=== PATIENT | male | born 1995 | race Asian ===

== ENCOUNTER 2024-10-16 12:05 | Emergency (ER) | payer MEDICAID, OTHER ==
[~2024-10-16] VITALS: Ht 177.8 cm; Wt 106.4 kg
[2024-10-16 12:21] VITALS: TEMP 98.5
[2024-10-16 14:01] LABS: COVID AG,FIA SOURCE NASAL SWAB
[2024-10-16 14:22] LABS: INFLUENZA TYPE A NEGATIVE FOR TYPE A (NEGATIVE); INFLUENZA TYPE B NEGATIVE FOR TYPE B (NEGATIVE); SARS-COV2 (COVID) ANTIGEN,FIA Negative (Negative)
[2024-10-16] MEDS ORDERED: IBUP-1492 PO (14:32)
[2024-10-16] MEDS ORDERED: BENZ-227 PO (14:32)
[2024-10-16 14:38] VITALS: BP 136/80; PULSE 84; RESP 16; O2SAT 100
== END 2024-10-16 14:44 | disposition home or self-care (01) ==
LOC: EMS 12:09
DX: J06.9 Acute upper respiratory infection, unspecified (principal); Z20.822 Contact with and (suspected) exposure to COVID-19
CPT/HCPCS: 71045; 87804; 99284